=== PATIENT | female | born 1985 | race Caucasian/White ===

== ENCOUNTER → 2016-05-17 | Day surgery (SDC) | payer MEDICARE, OTHER ==
[~2016-05-17] MED LIST: ABIL5TAB6 PO; ARIP1TAB5 PO; CITA10TA4 PO; DEPA500T3 PO; IBUP800T23 PO; LACTATED RINGER'S 1,000 ML BAG IV ONE; LINA290C PO; LORA-373 PO; ONABOTULINUMTOXINA INJ 100 UNITS/VIAL ONE; PRED20 PO; PROPOFOL 100 MG/10 ML INJ IV ONE; RISP50P IM; SODIUM CHLORIDE 0.9% INJ 10 ML ONE
== END | disposition home or self-care (01) ==
LOC: ESDC 11:27
PROVIDERS: ATTEND Internal Medicine Gastroenterology
DX: R10.9 Unspecified abdominal pain (principal); K31.84 Gastroparesis; K29.70 Gastritis, unspecified, without bleeding; K20.9 Esophagitis, unspecified
CPT/HCPCS: 00740; 43236; 43239; 88305; 88312; J0585; J3010; J7120

== ENCOUNTER 2016-10-13 12:26 | Emergency (ER) | payer MEDICARE, OTHER ==
[~2016-10-13] VITALS: Ht 170.2 cm; Wt 150.0 kg
[~2016-10-13 12:26] MED LIST changes: -ARIP1TAB5 PO; -CITA10TA4 PO; -IBUP800T23 PO; -LACTATED RINGER'S 1,000 ML BAG IV ONE; -ONABOTULINUMTOXINA INJ 100 UNITS/VIAL ONE; -PROPOFOL 100 MG/10 ML INJ IV ONE; -SODIUM CHLORIDE 0.9% INJ 10 ML ONE
[2016-10-13 12:29] VITALS: BP 150/91; PULSE 89; RESP 16; TEMP 98.1; O2SAT 97
[2016-10-13] MEDS ORDERED: CITA10TA4 PO (12:38)
[2016-10-13] MEDS ORDERED: ARIP1TAB5 PO (12:38)
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
--- NOTE | 2016-10-13 15:20 | RADHPO ---
EXAM DATE/TIME: 10/13/2016 14:27 [facility] COMPARISON: No previous studies available for comparison. INDICATIONS : Low back pain after fall MEDICAL HISTORY : None. SURGICAL HISTORY : Tubal ligation. Cholecystectomy. ENCOUNTER: Initial ACUITY: 1 day PAIN SCORE: 10/10 LOCATION: Lumbar spine FINDINGS: There are five non-rib bearing vertebral bodies. The vertebral bodies are in normal alignment withou t evidence of subluxation or scoliosis. The disc spaces are maintained. The posterior elements are intact without evidence of spondylolysis. The pedicles are intact. Bony mineralization is normal. No fracture is identified. CONCLUSION: Unremarkable examination of the lumbar spine. Miguel Fisher Jr., MD on October 13, 2016 at 15:16 Board Certified Radiologist. This report was verified electronically.
--- NOTE | 2016-10-13 15:25 | RADHPO ---
EXAM DATE/TIME: 10/13/2016 14:51 [facility] COMPARISON: CT ABDOMEN & PELVIS W/O CONTRAST, October 26, 2014, 16:04. INDICATIONS : Trauma. Fall. RADIATION DOSE: 26.47 CTDIvol (mGy) MEDICAL HISTORY : Renal failure, chronic. Gastroparesis. Gastroesophageal reflux disease.Schizophrenia. SURGICAL HISTORY : Tubal ligation. Cholecystectomy. section. ENCOUNTER: Initial ACUITY: 1 day PAIN SCALE: 5/10 LOCATION: neck TECHNIQUE: Volumetric scanning of the cervical spine was performed. Multiplanar reconstructions in the sagittal, coronal and oblique axial planes were performed. Using automated exposure control and adjustment o f the mA and/or kV according to patient size, radiation dose was kept as low as reasonably achievable to obtain optimal diagnostic quality images. FINDINGS: VERTEBRAE: Normal vertebral body height. ALIGNMENT: No evidence of subluxation. C2-C3: The bony spinal canal is normal in size. No evidence of disc bulge or herniation. The neural forami na are bilaterally patent. C3-C4: The bony spinal canal is normal in size. No evidence of disc bulge or herniation. The neural forami na are bilaterally patent. C4-C5: The bony spinal canal is normal in size. No evidence of disc bulge or herniation. The neural forami na are bilaterally patent. C5-C6: The bony spinal canal is normal in size. No evidence of disc bulge or herniation. The neural forami na are bilaterally patent. C6-C7: The bony spinal canal is normal in size. No evidence of disc bulge or herniation. The neural forami na are bilaterally patent. C7-T1: The bony spinal canal is normal in size. No evidence of disc bulge or herniation. The neural forami na are bilaterally patent. CONCLUSION: 1. Negative examination. Maulik Fitzpatrick MD on October 13, 2016 at 15:22 Board Certified Radiologist. This report was verified electronically.
--- NOTE | 2016-10-13 15:48 | RADHPO ---
EXAM DATE/TIME: 10/13/2016 14:26 [facility] COMPARISON: No previous studies available for comparison. INDICATIONS : Back pain after fall. MEDICAL HISTORY : None. SURGICAL HISTORY : Tubal ligation. Cholecystectomy. ENCOUNTER: Initial ACUITY: 1 day PAIN SCORE: 10/10 LOCATION: Thoracic spine FINDINGS: There is normal alignment of the thoracic vertebral bodies. Vertebral body height is maintained. No evidence of fracture or subluxation. Pedicles are intact at all levels. The paravertebral reflecti ons are not thickened. Visualized portions of the lungs are clear. Surgical clips are seen in the upp er quadrants bilaterally. CONCLUSION: 1. No acute fracture or subluxation. Rashard Storm MD on October 13, 2016 at 15:44 Board Certified Radiologist. This report was verified electronically.
[2016-10-13] MEDS ORDERED: IBUP800T23 PO (16:05)
== END 2016-10-13 16:17 | disposition home or self-care (01) ==
LOC: PHEFT 12:26
DX: S29.012A Strain of muscle and tendon of back wall of thorax, initial encounter (principal); S39.012A Strain of muscle, fascia and tendon of lower back, initial encounter; W01.0XXA Fall on same level from slipping, tripping and stumbling without subsequent striking against object, initial encounter
CPT/HCPCS: 72072; 72110; 72125

== ENCOUNTER → 2017-02-11 | Outpatient (CLI) | payer MEDICARE, MEDICAID ==
[~2017-02-11] MED LIST changes: +*RESP: ALBUTEROL 2.5 MG/3 ML NEB (PRN) PERIprocedural Use ONLY NEB ONE; -ABIL5TAB6 PO; +ARIP1TAB5 PO; +BUPR150XL PO; +CHLORHEXIDINE GLUCONATE 2 % 1 PACK (2 CLOTHS) TOPICAL PRN; +CITA10TA4 PO; +DEXAMETHASONE SOD PHOS 4 MG/ML VIAL IV ONE; +DEXTROSE 5%-LACTATED RING INJ 1,000 ML IV SCH; +DO NOT ADM ANY ANTICOAGULANT DRUGS PRN; +FLUMAZENIL 0.5 MG/5 ML VIAL IV PUSH PRN; +IBUP800T23 PO; +INSULIN HUMAN REGULAR 1,000 UNITS/10 ML VIAL SQ PRN; +LACTATED RINGER'S 1000 ML IV PRN; +LIDOCAINE HCL 1% PF 5 ML AMPULE OTHER ONE; -LINA290C PO; +METOPROLOL TARTRATE 25 MG TAB PO PRN; +MULT-65 PO; +NALOXONE HCL 0.4 MG/ML AMP IV PUSH PRN; +ONABOTULINUMTOXINA INJ 100 UNITS/VIAL PRN; +ONDANSETRON HCL 4 MG/2 ML VIAL IV PUSH ONE; +PHENYLEPH/NS 1000 MCG/10 ML SYR IV ONE; -PRED20 PO; +PROPOFOL 200 MG/20 ML AMP IV ONE; +PROPOFOL 200 MG/20 ML AMP ONE; +RISP1 PO; +SODIUM CHLORID 0.9% 500 ML IV PRN; +SUCCINYLCHOLINE CHLORIDE 100 MG/5 ML SYRINGE IV PUSH ONE; +VITA10002 PO; +VITA500T4 PO
[2017-02-11 08:54] VITALS: BP 116/66; PULSE 84; RESP 18; TEMP 97.9; O2SAT 97
--- NOTE | 2017-02-11 11:35 | GIPROC ---
[facility] [address] [facility]. [facility], [address] EGD PROCEDURE REPORT EXAM DATE: 02/11/2017 PATIENT NAME: Gillian Calderón MR #: [id number] BIRTHDATE: 1985 ATTENDING: Rosalia Alcantar MD ORDER #: [id number] METAL TURNER: Ramona Young and Shahnaz Harrison STATUS: outpatient INDICATIONS: The patient is a 31 yr old female here for an EGD due to gastroparesis, reflux, nausea, vomiting PROCEDURE PERFORMED: EGD w/ biopsy EGD w/ directed submucosal injection(s), any substance MEDICATIONS: None and Per Anesthesia. TOPICAL ANESTHETIC: none CONSENT: The patient understands the risks and benefits of the procedure and understands that these risks include, but are not limited to: sedation, allergic reaction, infection, perforation and/or bleeding. Alternative means of evaluation and treatment include, among others: physical exam, x-rays, and/or surgical intervention. The patient elects to proceed with this endoscopic procedure. medical equipment was checked for proper function. Hand hygiene and appropriate measures for infection prevention was taken. After the risks, benefits and alternatives of the procedure were thoroughly explained, Informed consent was verified, confirmed and timeout was successfully executed by the treatment team. The patient was anesthetized with topical anesthesia and the Pentax [id number] endoscope was introduced through the mouth and advanced to the second portion of the duodenum. Retroflexed views revealed a hiatal hernia The gastroscope was then slowly withdrawn and removed. Gastritis antrum-biopsy esophagitis distal esophagus BOTOX injected in pyloric channel-25 units in each quadrant patient was intubeated for procedure, she vomited -40 cc of bile when turned in left lateral ducubitus from supine position-was already intubeated. ADVERSE EVENTS: There were no complications. IMPRESSIONS: 1. Gastritis antrum-biopsy esophagitis distal esophagus BOTOX injected in pyloric channel-25 units in each quadrant patient was intubeated for procedure, she vomited -40 cc of bile when turned in left lateral ducubitus from supine position-was already intubeated 2. Retroflexed views revealed a hiatal hernia RECOMMENDATIONS: 1. Await biopsy results. Biopsy results will not be ready for 7-10 days. If you don't hear from us in two weeks, call our office for biopsy results. 2. Anti-reflux regimen 3. Continue PPI 4. Avoid NSAIDS 5. Referral surgery-if symptoms worse PATIENT CONDITION: stable DISPOSITION: Home REPEAT EXAM: Return 6 months EGD Rosalia Alcantar MD eSigned: Rosalia Alcantar MD 02/11/2017 11:35 AM cc: Nikole Peralta M.D. PATIENT NAME: Gillian Calderón MR#: [id number]
--- NOTE | 2017-02-11 11:38 | GIPROC ---
[facility] [address] [facility]. [facility], [address] FLEXIBLE SIGMOIDOSCOPY PROCEDURE REPORT EXAM DATE: 02/11/2017 PATIENT NAME: Gillian Calderón MR #: [id number] BIRTHDATE: 1985 ORDER #: [id number] ATTENDING: Rosalia Alcantar MD [employer] DIRECTOR: Ramona Young RN STATUS: outpatient INDICATIONS: The patient is a 31 yr old female here for a flexible sigmoidoscopy due to hemorrhoids PROCEDURE PERFORMED: Thermal destuction internal hemorrhoids MEDICATIONS: None and Per Anesthesia. ESTIMATED BLOOD LOSS: None CONSENT: The patient understands the risks and benefits of the procedure and understands that these risks include, but are not limited to: sedation, allergic reaction, infection, perforation and/or bleeding. Alternative means of evaluation and treatment include, among others: physical exam, x-rays, and/or surgical intervention. The patient elects to proceed with this endoscopic procedure. medical equipment was checked for proper function. Hand hygiene and appropriate measures for infection prevention was taken. After the risks, benefits and alternatives of the procedure were thoroughly explained, Informed consent was verified, confirmed and timeout was successfully executed by the treatment team. A digital rectal exam revealed external hemorrhoids The endoscope was introduced through the anus and advanced to the rectum. The prep was poor. The instrument was then slowly withdrawn as the colon was fully examined. COLON FINDINGS: Internal hemorrhoids grade 2 -s/p IRC-4 applications setting 3. Retroflexed views revealed internal hemorrhoid The scope was then completely withdrawn from the patient and the procedure terminated. ADVERSE EVENTS: There were no complications. IMPRESSIONS: 1. Internal hemorrhoids grade 2 -s/p IRC-4 applications setting 3 2. Retroflexed views revealed internal hemorrhoid 3. Revealed external hemorrhoids RECOMMENDATIONS: 1. Hemorrhoidal Precautions: 1- avoid straining when defecating 2- hemorrhoidal creams or ointments as needed 3- Sitz bath daily 4- high fiber diet, and fiber supplements 5- laxatives as needed, especially milk of mag 2. Fiber rich diet 3. Proctozone cream RECALL: Return As need for Flexible Sigmoidoscopy Rosalia Alcantar MD eSigned: Rosalia Alcantar MD 02/11/2017 11:38 AM cc: Nikole Peralta M.D.
[2017-02-11 12:55] VITALS: BP 100/58; PULSE 87; RESP 16; TEMP 97.7; O2SAT 96
== END ==
LOC: HSDC 07:49
PROVIDERS: ATTEND Internal Medicine Gastroenterology
DX: K31.84 Gastroparesis (principal); K21.0 Gastro-esophageal reflux disease with esophagitis; R11.2 Nausea with vomiting, unspecified; K29.70 Gastritis, unspecified, without bleeding; K44.9 Diaphragmatic hernia without obstruction or gangrene; K64.1 Second degree hemorrhoids; K64.4 Residual hemorrhoidal skin tags
CPT/HCPCS: 00740; 43236; 45330; 46930; 88305; 88312; J0330; J0585; J1100; J2370; J2405; J7120; J7613

== ENCOUNTER → 2017-02-23 | Outpatient (CLI) | payer MEDICARE, MEDICAID ==
[~2017-02-23] MED LIST changes: -*RESP: ALBUTEROL 2.5 MG/3 ML NEB (PRN) PERIprocedural Use ONLY NEB ONE; -CHLORHEXIDINE GLUCONATE 2 % 1 PACK (2 CLOTHS) TOPICAL PRN; -DEXAMETHASONE SOD PHOS 4 MG/ML VIAL IV ONE; -DEXTROSE 5%-LACTATED RING INJ 1,000 ML IV SCH; -DO NOT ADM ANY ANTICOAGULANT DRUGS PRN; -FLUMAZENIL 0.5 MG/5 ML VIAL IV PUSH PRN; -INSULIN HUMAN REGULAR 1,000 UNITS/10 ML VIAL SQ PRN; -LACTATED RINGER'S 1000 ML IV PRN; -LIDOCAINE HCL 1% PF 5 ML AMPULE OTHER ONE; +LORA-392 PO; -METOPROLOL TARTRATE 25 MG TAB PO PRN; -NALOXONE HCL 0.4 MG/ML AMP IV PUSH PRN; -ONABOTULINUMTOXINA INJ 100 UNITS/VIAL PRN; -ONDANSETRON HCL 4 MG/2 ML VIAL IV PUSH ONE; -PHENYLEPH/NS 1000 MCG/10 ML SYR IV ONE; -PROPOFOL 200 MG/20 ML AMP IV ONE; -PROPOFOL 200 MG/20 ML AMP ONE; -SODIUM CHLORID 0.9% 500 ML IV PRN; -SUCCINYLCHOLINE CHLORIDE 100 MG/5 ML SYRINGE IV PUSH ONE
[2017-02-23 15:16] LABS: AUTOMATED NEUTROPHIL # 7.6 TH/MM3 (1.8-7.7); BASOPHIL % 0.4 % (0.0-2.0); EOSINOPHIL # 0.1 TH/MM3 (0-0.4); EOSINOPHIL % 0.8 % (0.0-4.0); HEMATOCRIT 40.2 % (35.0-46.0); HEMO FLAGS DIFF FINAL; LYMPH % 20.6 % (9.0-44.0); LYMPHOCYTE # 2.2 TH/MM3 (1.0-4.8); MEAN CELL VOLUME 91.9 FL (80.0-100.0); MEAN CORPUSCULAR HEMOGLOBIN 30.9 PG (27.0-34.0); MEAN CORPUSCULAR HGB CONC 33.7 % (32.0-36.0); MONO % 6.1 % (0.0-8.0); NEUT % 72.1 % (16.0-70.0); PLATELET COUNT 191 TH/MM3 (150-450); RED BLOOD COUNT 4.37 MIL/MM3 (4.00-5.30); RED CELL DISTRIBUTION WIDTH 13.7 % (11.6-17.2); WHITE BLOOD COUNT 10.6 TH/MM3 (4.0-11.0)
[2017-02-23 15:20] LABS: BACTERIA, URINE RARE /hpf; BLOOD, URINE TRACE (NEG); GLUCOSE,URINE NEG (NEG); KETONE, URINE NEG (NEG); MUCUS URINE FEW /lpf (OCC); NITRITE,URINE NEG (NEG); PH, URINE 6.5 (5.0-8.5); SQUAMOUS EPITHELIAL CELL URINE 3 /hpf (0-5); URINE COLOR YELLOW (YELLW/STRAW)
[2017-02-23 15:32] LABS: POTASSIUM 4.4 MEQ/L (3.5-5.1)
== END ==
LOC: CPRE 14:35
PROVIDERS: ATTEND Obstetrics & Gynecology
DX: Z01.812 Encounter for preprocedural laboratory examination (principal); N94.6 Dysmenorrhea, unspecified; N92.0 Excessive and frequent menstruation with regular cycle; N94.10 Unspecified dyspareunia
CPT/HCPCS: 36415; 80048; 81001; 84443; 85025

== ENCOUNTER 2017-03-02 05:31 | Observation (INO) | payer MEDICARE, MEDICAID ==
[~2017-03-02] VITALS: Ht 170.2 cm; Wt 149.6 kg
[~2017-03-02 05:31] MED LIST changes: -LORA-392 PO
[2017-03-02] MEDS ORDERED: INSULIN HUMAN REGULAR 1,000 UNITS/10 ML VIAL SQ PRN (06:15)
[2017-03-02] MEDS ORDERED: CHLORHEXIDINE GLUCONATE 2 % 1 PACK (2 CLOTHS) TOPICAL PRN (06:15)
[2017-03-02] MEDS ORDERED: METOPROLOL TARTRATE 25 MG TAB PO PRN (06:15)
[2017-03-02] MEDS ORDERED: LACTATED RINGER'S 1000 ML IV PRN (06:15)
[2017-03-02] MEDS ORDERED: CEFAZOLIN INJ 3,000 MG in SODIUM CHLORIDE 0.9% INJ 100 ML IV SCH (06:15)
[2017-03-02] MEDS ORDERED: SODIUM CHLORID 0.9% 500 ML IV PRN (06:15)
[2017-03-02] MEDS ORDERED: LORA-392 PO (06:47)
[2017-03-02] MEDS ORDERED: SODIUM CHLORIDE 0.9% INJ 100 ML ONE (07:25)
[2017-03-02] MEDS ORDERED: METRONIDAZOLE 500 MG/100 ML ISONTONIC SOLN IV SCH (07:30)
[2017-03-02] MEDS ORDERED: CLINDAMYCIN INJ 900 MG in SODIUM CHLORIDE 0.9% INJ 100 ML IV SCH (07:30)
[2017-03-02] MEDS ORDERED: SUGAMMADEX SODIUM 200 MG/2 ML VIAL IV PUSH ONE ×2 (07:52)
[2017-03-02] MEDS ORDERED: ACETAMINOPHEN 1000 MG/100 ML 100 ML IV ONE (07:52)
[2017-03-02] MEDS ORDERED: ESTROGENS CONJUGATED VAG CREA 15 APPL/30 GM TUBE ONE (07:58)
[2017-03-02] MEDS ORDERED: ONDANSETRON HCL 4 MG/2 ML VIAL IV PUSH ONE (12:00)
[2017-03-02] MEDS ORDERED: PROPOFOL 200 MG/20 ML AMP IV ONE (12:00)
[2017-03-02] MEDS ORDERED: LIDOCAINE HCL 1% PF 5 ML AMPULE OTHER ONE (12:00)
[2017-03-02] MEDS ORDERED: VECURONIUM BROMIDE 20 MG VIAL IV ONE (12:00)
[2017-03-02] MEDS ORDERED: LACTATED RINGER'S 1000 ML INJ 2,000 ML IV ONE (12:00)
[2017-03-02] MEDS ORDERED: SUCCINYLCHOLINE CHLORIDE 100 MG/5 ML SYRINGE IV PUSH ONE (12:00)
[2017-03-02] MEDS ORDERED: SODIUM CHLORIDE 0.9% 20 ML VIAL IV ONE (12:00)
[2017-03-02] MEDS ORDERED: MORPHINE SULFATE 4 MG/ML INJ IV ONE (12:00)
[2017-03-02] MEDS ORDERED: MIDAZOLAM HCL 2 MG/2 ML VIAL IV ONE (12:00)
[2017-03-02] MEDS ORDERED: ePHEDrine/NS 25 MG/5 ML SYR IV ONE (12:00)
[2017-03-02] MEDS ORDERED: ROCURONIUM INJ 50 MG/5 ML SYRINGE IV PUSH ONE (12:00)
[2017-03-02] MEDS ORDERED: PROMETHAZINE INJ 25 MG/ML VIAL IM PRN (12:45)
[2017-03-02] MEDS ORDERED: ZOLPIDEM TARTRATE 5 MG TAB PO PRN (12:45)
[2017-03-02] MEDS ORDERED: oxyCODONE/ACETAMINOPHEN 5 MG/325 MG TAB PO PRN (12:45)
[2017-03-02] MEDS ORDERED: diphenhydrAMINE HCL 25 MG CAP PO PRN (12:45)
[2017-03-02] MEDS ORDERED: SODIUM CHLORIDE 0.9% FLUSH 10 ML FLUSH IV FLUSH PRN (12:45)
[2017-03-02] MEDS ORDERED: ONDANSETRON HCL 4 MG/2 ML VIAL IVP PRN (12:45)
[2017-03-02] MEDS ORDERED: DO NOT ADM ANY ANTICOAGULANT DRUGS PRN (13:04)
[2017-03-02] MEDS ORDERED: *morphine SULFATE 8 MG/ML PERIprocedure ONLY ONE ×3 (13:11→14:18)
[2017-03-02] MEDS ORDERED: *PROMETHAZINE 25 MG/ML VIAL PERIprocedural use ONLY ONE (13:11)
--- NOTE | 2017-03-02 14:55 | MP ---
cc: ROBELOCTAVIA DATE OF SURGERY: 03/02/2017 PREOPERATIVE DIAGNOSIS 1. Severe menorrhagia. 2. Dysmenorrhea. 3. Dyspareunia. POSTOPERATIVE DIAGNOSIS 1. Severe menorrhagia. 2. Dysmenorrhea. 3. Dyspareunia. PROCEDURE Laparoscopic-assisted vaginal hysterectomy, bilateral salpingectomy. ANESTHESIA General endotracheal intubation. SURGEON Usha Perez MD FINDINGS On examination under anesthesia the cervix was nulliparous and small, uterus normal size, shape and consistency. Adnexa was negative for masses. Laparoscopic exam revealed a normal uterus. The fallopian tubes had been interrupted bilaterally from her previous tubal ligation. There was some scar tissue around her fimbriated ends. There was some scar tissue around her right ovary. This was all taken down. Her uterus was normal. The ovaries were normal. COMPLICATIONS None. COUNTS Correct. ESTIMATED BLOOD LOSS 150 cc. FLUIDS Crystalloids. CONDITION The patient tolerated the procedure well and went to the recovery room in good condition. DETAILS OF PROCEDURE The patient was taken to the operating room, identified by name band and verbally. She was given a general anesthetic, intubated and placed in dorsal lithotomy position, prepped and draped in the usual sterile manner. A timeout was taken. A Bearden catheter was inserted. Examination under anesthesia was carried out with the above findings. A speculum was placed into the vagina. The anterior lip of the cervix was grasped with a single-tooth tenaculum. The cervix was serially dilated to accept a VCare. Once this had been accomplished we went to the umbilical area and a small umbilical incision was made and with a 5 mm trocar the abdomen was entered without difficulty, and a pneumoperitoneum created with 3 liters of CO2. Inferior lateral to the umbilicus two more 5 mm ports were placed. The dissection began with the round ligaments. Using the Harmonic scalpel the round ligaments were taken bilaterally without difficulty. There was a lot of scar tissue around the bladder from her previous sections. We started the bladder flap then we went to the left fallopian tube and removed that from the mesosalpinx, took the broad ligament down to the level of the internal cervical os. This was repeated on the contralateral side. We then took the bladder flap and created more room and took that down out of harm's way. At this point we took the uterine vessels at the level of the internal cervical os and we took the uterine vessels bilaterally with the Harmonic scalpel. Bleeding was hemostatic at this time. We pushed the bladder well out of the way over the cervix until we saw the VCare. The VCare was then seen and the dissection was done around the entire VCare. We went down below at this point and tried to remove the cervix, however, somehow the cervix was still attached. Similar to the vaginal hysterectomy we got a big speculum, made a circumferential incision around the cervix and took the cardinal ligament down from below. We removed the cervix which was transected somehow from the uterus. The uterus was then pushed down and the uterus was grasped with a double-tooth tenaculum and pulled out of the vagina without difficulty. At this point the vaginal cuff was repaired with 0 Vicryl in an interrupted fashion with a CT-1 needle. At this time we put a sponge stick in the vagina and went above. There were some small bleeders which were coagulated with the bipolar Kleppinger forceps and the pelvis was irrigated with a large amount of fluid. The fimbriated fallopian tubes were surrounded by adhesions and fatty tissue. The mesosalpinx was not really that clear. We removed the fallopian tubes with the Harmonic scalpel and pulled them through the 5 mm trocar. One of them was in pieces. At this point we irrigated again, checked all the pedicles for bleeding and there was none. We removed the laparoscope under direct vision. We removed the other two trocars after the air was released and the incisions were repaired with 4-0 Monocryl in subcuticular fashion. She tolerated the procedure well, but it did take over three hours to complete this surgery. It was difficult due to the large amount of adipose. She tolerated the procedure well and went to the recovery room. R. MD GONZALEZ Owens/NI /1:18 PM /2:31 PM
[2017-03-02 15:00] VITALS: BP 121/66; PULSE 68; RESP 16; TEMP 98.1; O2SAT 99
[2017-03-02] MEDS ORDERED: PILL SPLITTER OTHER PRN (15:00)
[2017-03-02] MEDS ORDERED: HYDROmorphone HCL PF 2 MG/ML VIAL IV PUSH PRN (15:00)
[2017-03-02] MEDS ORDERED: LACTATED RINGER'S 1000 ML INJ 1,000 ML IV SCH (15:00)
[2017-03-02] MEDS ORDERED: LORazepam 1 MG TAB PO PRN (15:00)
[2017-03-02] MEDS: IBUPROFEN 600 MG TAB PO PRN ×2 (15:13→21:09)
[2017-03-02] MEDS: DOCUSATE SODIUM 100 MG CAP PO SCH (15:14)
[2017-03-02] MEDS: CITALOPRAM HYDROBROMIDE 20 MG TAB PO SCH (18:49)
[2017-03-02 21:00] VITALS: BP 133/72; PULSE 79; RESP 16; TEMP 97.8
[2017-03-02] MEDS ORDERED: ARIPiprazole 10 MG TAB PO SCH (21:00)
[2017-03-02] MEDS ORDERED: risperiDONE 1 MG TAB PO SCH (21:00)
[2017-03-02] MEDS ORDERED: SODIUM CHLORIDE 0.9% FLUSH 10 ML FLUSH IV FLUSH SCH (21:00)
[2017-03-02] MEDS ORDERED: DIVALPROEX SODIUM E.R. 500 MG TAB PO SCH (21:00)
[2017-03-03] MEDS: oxyCODONE/ACETAMINOPHEN 5 MG/325 MG TAB PO PRN ×3 (00:59→09:35)
[2017-03-03 01:00] VITALS: BP 133/75; PULSE 80; RESP 16; TEMP 98
[2017-03-03] MEDS: IBUPROFEN 600 MG TAB PO PRN (04:59)
[2017-03-03 05:00] VITALS: BP 116/55; PULSE 84; RESP 16; TEMP 97.5
[2017-03-03 05:58] LABS: BASOPHIL # 0.1 TH/MM3 (0-0.2); BASOPHIL % 0.6 % (0.0-2.0); EOSINOPHIL # 0.1 TH/MM3 (0-0.4); EOSINOPHIL % 0.7 % (0.0-4.0); HEMATOCRIT 32.7 % (35.0-46.0); LYMPH % 11.8 % (9.0-44.0); LYMPHOCYTE # 1.5 TH/MM3 (1.0-4.8); MEAN CELL VOLUME 91.3 FL (80.0-100.0); MEAN CORPUSCULAR HEMOGLOBIN 30.8 PG (27.0-34.0); MEAN CORPUSCULAR HGB CONC 33.8 % (32.0-36.0); MONO % 7.4 % (0.0-8.0); NEUT % 79.5 % (16.0-70.0); PLATELET COUNT 125 TH/MM3 (150-450); RED BLOOD COUNT 3.59 MIL/MM3 (4.00-5.30); RED CELL DISTRIBUTION WIDTH 13.9 % (11.6-17.2); WHITE BLOOD COUNT 12.6 TH/MM3 (4.0-11.0)
[2017-03-03 06:00] LABS: HEMO FLAGS AUTO DIFF
[2017-03-03 06:34] LABS: BICARBONATE 24.9 MEQ/L (21.0-32.0); POTASSIUM 4.1 MEQ/L (3.5-5.1)
[2017-03-03 07:12] LABS: PLATELET ESTIMATE SMEAR LOW (NORMAL); PLATELET MORPHOLOGY NORMAL (NORMAL); SCAN/DIFF AUTO DIFF CONFIRMED
--- NOTE | 2017-03-03 07:37 | HHI.PR ---
Subjective Remarks Doing well, pain is well controlled, eating well. Objective Vital Signs Vital Signs Date Time Temp Pulse Resp B/P (MAP) Pulse Ox O2 Delivery O2 Flow Rate FiO2 03/03/17 05:00 97.5 84 16 116/55 (75) 03/03/17 01:00 98.0 80 16 133/75 (94) 03/02/17 21:00 97.8 79 16 133/72 (92) 03/02/17 15:00 98.1 68 16 121/66 (84) 99 03/02/17 14:00 66 16 129/85 (100) 100 Room Air 03/02/17 13:45 72 16 123/81 (95) 100 Room Air 03/02/17 13:30 70 16 123/82 (96) 100 03/02/17 13:15 72 16 133/64 (87) 100 Nasal Cannula 2 03/02/17 13:00 97.8 88 16 124/85 (98) 100 Nasal Cannula 2 I/O 03/02/17 03/02/17 03/02/17 03/03/17 03/03/17 03/03/17 07:00 15:00 23:00 07:00 15:00 23:00 Intake Total 2200 ml Output Total 800 ml 400 ml Balance 1400 ml -400 ml Other 2200 ml Output Urine Total 500 ml 400 ml Estimated Blood Loss 300 ml Result Diagram: 03/03/17 0417 03/03/17 0417 Objective Remarks Chest is clear, regular rate and rhythm. Abdomen is soft and non-distended. Incision is clean and dry. Ext no CCE. A/P Assessment and Plan Post Op Day 1 Doing well Home today and return to office in two weeks. Usha Perez MD Mar 03, 2017 07:37
[2017-03-03] MEDS: CITALOPRAM HYDROBROMIDE 20 MG TAB PO SCH (08:55)
[2017-03-03] MEDS: DOCUSATE SODIUM 100 MG CAP PO SCH (08:55)
[2017-03-03] MEDS ORDERED: buPROPion HCL 150 MG SUSTAINED RELEASE TAB PO SCH (09:00)
--- NOTE | 2017-03-03 09:23 | HHI.DCPOC ---
Discharge Care Plan Diagnosis: (1) History of laparoscopy-assisted vaginal hysterectomy Report Symptoms to Your Doctor -Temperature above 100.5 degrees -Redness, of incision or excessive or foul smelling drainage -Unusual pain or calf pain -Increased vaginal bleeding -Painful or difficulty urinating -Feelings of extreme sadness or anxiety after 2 weeks Goals to Promote Your Health * To prevent worsening of your condition and complications * To maintain your health at the optimal level Directions to Meet Your Goals Take your medications as prescribed Follow your dietary instruction Follow activity as directed Ensure plenty of rest for recovery Drink fluids for hydration Keep your appointments as scheduled Take your immunizations and boosters as scheduled If your symptoms worsen call your PCP, if no PCP go to Urgent Care Center or Emergency Room Smoking is Dangerous to Your Health. Avoid second hand smoke Call the 24-hour crisis hotline for domestic abuse at Elva Bae Mar 03, 2017 09:23
[2017-03-15] MEDS ORDERED: RISPERDAL CONSTA IM SCH (21:00)
== END 2017-03-03 10:13 | disposition home or self-care (01) ==
LOC: HSDC 05:31 → HSDI 12:38 → H1EA 14:35
PROVIDERS: ADMIT Obstetrics & Gynecology; ATTEND Obstetrics & Gynecology
DX: N94.6 Dysmenorrhea, unspecified (principal); N92.0 Excessive and frequent menstruation with regular cycle; N94.10 Unspecified dyspareunia; N72 Inflammatory disease of cervix uteri; K21.9 Gastro-esophageal reflux disease without esophagitis; F17.200 Nicotine dependence, unspecified, uncomplicated; F20.9 Schizophrenia, unspecified; F32.9 Major depressive disorder, single episode, unspecified; E66.9 Obesity, unspecified; Z68.43 Body mass index [BMI] 50.0-59.9, adult
CPT/HCPCS: 00944; 58552; 80048; 85025; 86850; 86900; 86901; 88307; 96374; 96375; G0378; J0131; J0330; J1170; J2250; J2270; J2405; J2550; J3010; J7120

== ENCOUNTER 2017-06-05 07:49 | Emergency (ER) | payer MEDICARE, MEDICAID ==
[~2017-06-05] VITALS: Ht 170.2 cm; Wt 144.0 kg
[~2017-06-05 07:49] MED LIST changes: +ABIL10TA8 PO; -ARIP1TAB5 PO; -IBUP800T23 PO; -LORA-373 PO; +LORA-392 PO
[2017-06-05 07:54] VITALS: BP 146/75; PULSE 86; RESP 18; TEMP 97.9; O2SAT 95
[2017-06-05] MEDS ORDERED: DIVA250ER PO (08:35)
[2017-06-05] MEDS ORDERED: DEPA500T3 PO (08:35)
[2017-06-05] MEDS ORDERED: PRED10 PO (09:07)
[2017-06-05] MEDS ORDERED: BACT800T5 PO (09:07)
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
== END 2017-06-05 09:29 | disposition home or self-care (01) ==
LOC: PHED 07:49 → PHEFT 09:29
DX: J32.9 Chronic sinusitis, unspecified (principal); F31.9 Bipolar disorder, unspecified; F41.9 Anxiety disorder, unspecified; K21.9 Gastro-esophageal reflux disease without esophagitis; F20.9 Schizophrenia, unspecified; F17.200 Nicotine dependence, unspecified, uncomplicated; Z79.899 Other long term (current) drug therapy; Z87.19 Personal history of other diseases of the digestive system; Z88.5 Allergy status to narcotic agent
CPT/HCPCS: 99284